=== PATIENT | female | born 1980 | race Two or more races ===

== ENCOUNTER 2024-11-08 14:05 | Outpatient (OUT) | payer OTHER, SELFPAY ==
[2024-11-08 14:51] LABS: Basophils Percent Auto 0.6 % (0.2-2.0); Eosinophils Absolute Auto 0.3 10^3/uL (0.0-0.7); Eosinophils Percent Auto 4.6 % (0.9-7.0); Hematocrit 42.9 % (36.0-48.0); Hemoglobin 13.7 g/dL (12.0-16.0); Immature Granulocytes Abs Auto 0.01 10^3/uL (0.00-0.03); Immature Granulocytes Pct Auto 0.1 % (0.0-0.5); Lymphocytes Absolute Auto 1.2 10^3/uL (1.2-3.8); Mean Corpuscular HGB Conc 31.9 g/dL (29.9-35.2); Mean Corpuscular Hemoglobin 29.3 pg (26.7-34.0); Mean Corpuscular Volume 91.9 fL (81.0-99.0); Mean Platelet Volume 9.3 fL (9.5-13.5); Monocytes Absolute Auto 0.4 10^3/uL (0.3-0.8); Monocytes Percent Auto 5.8 % (1.7-12.0); Neutrophils Absolute Auto 4.9 10^3/uL (1.4-6.5); Neutrophils Percent Auto 71.9 % (43.0-75.0); Platelet Count 224 10^3/uL (150-450); Red Blood Count 4.67 10^6/uL (4.20-5.40); Red Cell Distribution Width 13.2 % (11.0-15.0); White Blood Count 6.8 10^3/uL (4.0-11.0)
[2024-11-08 15:29] LABS: Alanine Aminotransferase 15 U/L (14-59); Albumin Globulin Ratio 1.1; Albumin Level 3.5 g/dL (3.4-5.0); Alkaline Phosphatase 102 U/L (46-116); Anion Gap 11.6; Aspartate Amino Transferase 11 U/L (15-37); BUN Creatinine Ratio 18.9; Bilirubin Total 0.3 mg/dL (0.2-1.0); Calcium 8.7 mg/dL (8.5-10.1); Carbon Dioxide 29.7 mmol/L (21.0-32.0); Chloride 106 mmol/L (98-107); Estimated GFR (African America >60 (>=60 mL/min/1.73m^2); Estimated GFR (Non-African Ame >60 (>=60 mL/min/1.73m^2); Globulin 3.2 g/dL; Glucose 104 mg/dL (74-106); Potassium 4.3 mmol/L (3.5-5.1); Sodium 143 mmol/L (136-145); Total Protein 6.7 g/dL (6.4-8.2)
[2024-11-09 05:07] LABS: HBsAg Screen Negative (Negative); HIV Ab/p24 Ag Screen Non Reactive (Non Reactive)
== END 2024-11-08 14:06 | disposition home or self-care (01) ==
LOC: LAB 14:09
PROVIDERS: PCP Nurse Practitioner Primary Care; Visit Provider Nurse Practitioner Primary Care
DX: F14.20 Cocaine dependence, uncomplicated (principal)
CPT/HCPCS: 36415; 80053; 85025; 86317; 87340; 87389; 87522